=== PATIENT | female | born 1985 | race Asian ===

== ENCOUNTER 2016-08-02 05:34 | Emergency (ER) | payer OTHER ==
[~2016-08-02] VITALS: Ht 152.4 cm; Wt 60.8 kg
[2016-08-02 05:45] VITALS: BP_SYST 149
--- NOTE | 2016-08-02 05:45 | NUR ---
Placed in room 08 . Placed on director of cardiac cath lab, blood pressure machine and pulse oximeter. To gown for exam. Side rails up. Report given to ANA LAURA Ellsworth.
--- NOTE | 2016-08-02 05:55 | NUR ---
Pt states she has been having diarrhea since monday. Pt denies any abdominal pain. Denies N/V. Will continue to monitor. No other injuries or complaints mentioned/noted. No distress noted. AAOx4.
[2016-08-02] MEDS ORDERED: NACL 0.9% 1,000 ML IV ONE (05:57)
--- NOTE | 2016-08-02 06:00 | NUR ---
ER Dr. Sagastume at bedside examining patient.
--- NOTE | 2016-08-02 06:35 | NUR ---
# 20 gauge angiocath placed to L AC. Use of asceptic technique. Opsite placed over site. Blood return noted. Blood for lab drawn from site. Flushed with 10 cc of normal saline. No evidence of infiltration noted. Patient tolerated well.
[2016-08-02 06:58] LABS: BASOPHILS % (AUTO) 0.6 % (0.0-2.0); EOSINOPHILS % (AUTO) 0.1 % (0.0-4.0); HEMATOCRIT 43.9 % (36-48); HEMOGLOBIN 14.2 g/dL (12.0-16.0); LYMPHOCYTES # (AUTO) 2.5 K/uL (1.0-5.5); LYMPHOCYTES % (AUTO) 43.7 % (20.5-51.5); MEAN CORPUSCULAR HEMOGLOBIN 29 pg (27-31); MEAN CORPUSCULAR HGB CONC 32 % (32-36); MEAN CORPUSCULAR VOLUME 89 fL (79.0-98.0); MONOCYTES % (AUTO) 17.5 % (1.7-9.3); NEUTROPHILS # (AUTO) 2.2 K/uL (1.8-7.7); NEUTROPHILS % (AUTO) 38.1 % (40.0-70.0); PLATELET COUNT (AUTO) 243 K/uL (130-430); RED BLOOD CELL COUNT(AUTO) 4.92 MIL/uL (4.2-6.2); RED CELL DISTRIBUTION WIDTH 12.5 % (9.0-15.0); WHITE BLOOD COUNT (AUTO) 5.7 K/uL (4.8-10.8)
[2016-08-02 07:05] LABS: CREATININE 0.74 mg/dL (0.55-1.30); POTASSIUM 3.7 mmol/L (3.5-5.1)
[2016-08-02 07:09] LABS: ALBUMIN 3.7 g/dL (3.4-4.8); TOTAL BILIRUBIN 0.2 mg/dL (0.0-1.0); TOTAL PROTEIN, SERUM 7.9 g/dL (6.4-8.3)
[2016-08-02 07:09] LABS: BILIRUBIN,URINE NEGATIVE (NEGATIVE); BLOOD, URINE NEGATIVE (NEGATIVE); CLARITY/URINE CLEAR (CLEAR); COLOR,URINE YELLOW (YELLOW); GLUCOSE,URINE NEGATIVE (NEGATIVE); KETONES,URINE NEGATIVE (NEGATIVE); LEUKOCYTE ESTERASE ,URINE NEGATIVE (NEGATIVE); NITRITE, URINE NEGATIVE (NEGATIVE); PROTEIN URINE NEGATIVE (NEGATIVE); UROBILINOGEN,URINE 0.2 (0.2-1.0)
--- NOTE | 2016-08-02 07:10 | NUR ---
Received report from Susi, pt is resting comfortably with no complaints of pain.
[2016-08-02 07:29] VITALS: BP_SYST 115
--- NOTE | 2016-08-02 07:29 | NUR ---
Patient given written and verbal discharge instructions and verbalizes understanding. ER MD discussed with patient the results and treatment provided. Patient in stable condition. ID arm band removed. IV catheter removed intact and dressing applied, no active bleeding. No Rx given. Patient educated on pain management and to follow up with PMD. Pain Scale 0. Pt was given specimen cup for stool sample and to give to PCP. Opportunity for questions provided and answered.
== END 2016-08-02 07:29 | disposition home or self-care (01) ==
LOC: SED 05:34
DX: R19.7 Diarrhea, unspecified (principal); Z88.8 Allergy status to other drugs, medicaments and biological substances
CPT/HCPCS: 36415; 80053; 81003; 81025; 85025; 87230; 96360; 99284; J7030